=== PATIENT | male | born 1975 | race Caucasian/White ===

== ENCOUNTER 2021-01-02 12:35 | Emergency (ER) | payer OTHER | END 2021-01-02 16:30 | disposition home or self-care (01) | LOC: ER1 12:35 | DX: M54.9 Dorsalgia, unspecified (principal); R10.817 Generalized abdominal tenderness; F17.210 Nicotine dependence, cigarettes, uncomplicated; V49.3XXA Car occupant (driver) (passenger) injured in unspecified nontraffic accident, initial encounter | CPT/HCPCS: 99283 ==